=== PATIENT | female | born 2000 | race Caucasian/White ===

== ENCOUNTER → 2020-08-30 12:07 | Outpatient (CLI) | payer OTHER, SELFPAY ==
--- NOTE | ~2020-08-30 | XR_ITS ---
XR fl inj shoulder RT - MR/CT DATE: 08/30/2020 13:23 INDICATION: Right shoulder pain. Intra-articular contrast material injection for MR shoulder examinat ion TECHNIQUE: The purpose of the procedure, technique and potential complications were discussed with th e patient. The patient verbalized understanding and gave consent. Timeout procedure was performed. The skin of the anterior aspect of the right shoulder was prepared with sterile Betadine solution. Sterile drape was applied. 1% Xylocaine local anesthetic was administered to the skin and underlying subcutaneous tissues. A spi nal needle was introduced from an anterior approach into the glenohumeral joint space using fluorosco pic guidance. 12 cc of dilute MultiHance contrast material with Omnipaque 240 and 1% Xylocaine was in jected into the glenohumeral joint space. A single anteroposterior image out of the contrast material within the right shoulder joint was prese rved for the record. The needle was then withdrawn. The patient tolerated the procedure well, without complaint or apparent complication. IMPRESSION: Pre-MRI shoulder examination fluoroscopically guided right glenohumeral joint contrast ma terial injection Reviewed, dictated and finalized at [facility]. Reviewed, dictated and finalized at [facility]. IMPRESSION: Pre-MRI shoulder examination fluoroscopically guided right glenohum eral joint contrast material injection
--- NOTE | ~2020-08-30 | MR_ITS ---
EXAMINATION: MR shoulder RT w con DATE: 08/30/2020 14:06 INDICATION: Right shoulder pain TECHNIQUE: Magnetic resonance imaging (MRI) of the right shoulder was performed following intra-esther cular gadolinium contrast injection and without intravenous contrast. Details of the glenohumeral julia nt injection have been dictated separately. Sequences included axial T2-weighted FS FSE, axial T1-we ighted FS FSE, coronal oblique T1-weighted FS FSE, coronal oblique T2-weighted FSE, sagittal T2-weigh delroy FS FSE, sagittal T1-weighted FSE, and ABER (abduction external rotation) T1-weighted FS FSE. COMPARISON: Right shoulder MRI dated 02/16/2016 FINDINGS: Coracoacromial arch: The acromion undersurface is flat in morphology (type I). The coracoacromial ligament is normal. Acro mioclavicular joint is normal. Rotator cuff: The subscapularis, supraspinatus and teres minor tendons are normal. There is extension of intra-esther cular contrast across a longitudinal split tear extending between the posterior and middle thirds of the infraspinatus tendon. The contrast extends into a loculated likely large ganglion cyst along the superficial margin of the infraspinatus muscle belly and posterior head of the deltoid muscle belly. This likely occurs along a prior surgical tract with a few foci of susceptibility artifact in the ove rlying subcutaneous fat. The ganglion cyst measures 2.3 x 2.2 x 3.2 cm. Normal rotator cuff muscle bu lk and signal. Biceps tendon, glenoid labrum and glenohumeral cartilage: Long head of the biceps tendon is normal. There are suture anchor tracks along the posterior inferior glenoid consistent with repair of the previously noted labral tear. The labral repair appears to rem ain intact. There is a new very small bucket-handle tear stenting along the free edge of the 5:00-6:0 0 position of the anteroinferior glenoid labrum. Glenohumeral cartilage is normal. Bones and other: Bone alignment is normal. Normal marrow signal with no fracture, reactive edema or pathologic marrow replacing process. No abnormal fluid in the subacromial/subdeltoid bursa to suggest bursitis. IMPRESSION: 1. Intact repair of the posterior glenoid labrum with new very small bucket-handle tear along the out er free edge of the 5-6:00 position of the anteroinferior labrum. 2. Intra-articular contrast extension into a large ganglion cyst through a likely postsurgical longit udinal split tear of the posterior infraspinatus tendon. Reviewed, dictated and finalized at [facility]. IMPRESSION: 1. Intact repair of the posterior glenoid labrum with new very small bucket-kapoor dle tear along the outer free edge of the 5-6:00 position of the anteroinferior labrum. 2. Intra-articular contrast extension into a large ganglion cyst through a like ly postsurgical longitudinal split tear of the posterior infraspinatus tendon.
== END ==
PROVIDERS: PCP Physician Assistant Medical; Visit Provider Physician Assistant
DX: M25.511 Pain in right shoulder (principal)
CPT/HCPCS: 23350; 73222; 77002; A9577; Q9966

== ENCOUNTER 2022-12-18 11:07 | Outpatient (CLI) | payer OTHER, SELFPAY ==
[2022-12-18 11:21] LABS: Basophils Absolute Auto 0.1 K/mm3 (0.0-0.1); Basophils Percent Auto 0.6 % (0.2-1.2); Eosinophils Absolute Auto 0.3 K/mm3 (0-0.3); Eosinophils Percent Auto 3.2 % (0-4.4); Hematocrit 42.4 % (37.0-47.0); Immature Granulocyte Absolute 0.03 K/mm3 (0.00-0.031); Immature Granulocyte Percent A 0.3 % (0-0.5); Lymphocytes Absolute Auto 2.75 K/mm3 (0.9-3.2); Lymphocytes Percent Auto 28.1 % (18.3-44.2); Mean Corpuscular Volume 87.8 fl (80-100); Mean Platelet Volume 9.6 fl (7.4-10.4); Monocytes Absolute Auto 0.7 K/mm3 (0.1-0.6); Monocytes Percent Auto 7.4 % (2.6-8.5); Neutrophils Absolute Auto 5.9 K/mm3 (1.3-6.7); Neutrophils Percent Auto 60.4 % (45.5-73.1); Platelet Count Result 336 k/mm3 (150-375); Red Blood Count 4.83 M/mm3 (4.2-5.4); Red Cell Distribution Width 12.7 % (11.5-14.5); White Blood Count 9.8 K/mm3 (4.5-10.0)
== END 2022-12-18 11:08 | disposition home or self-care (01) ==
PROVIDERS: PCP Family Medicine; Visit Provider Physician Assistant Medical
DX: K62.5 Hemorrhage of anus and rectum (principal)
CPT/HCPCS: 36415; 85025

== ENCOUNTER 2023-02-08 01:50 | Day surgery (SDC) | payer OTHER, SELFPAY ==
[2023-01-22 14:56] VITALS: BMI 30.7
--- NOTE | 2023-02-06 09:06 | SUR.PREOP ---
Patient called regarding upcoming procedure. Message left on patient's voicemail regarding appointment times.
--- NOTE | 2023-02-07 09:52 | WPDANESEPPF ---
Anes - Initial Pre Proc Eval Procedure: Operation Date: 02/08/23 09:30 Proposed Procedures p Colonoscopy - Elías Chua MD Date/Time: 02/07/23 09:52 Surgeon: Elías Chua MD Pre Op Diagnosis: hemorrhage of anus and rectum Patient Data Age: 22 Gender: F Height: 1.68 m Weight: 86.5 kg Allergies Allergy/AdvReac Type Severity Reaction Status Date / Time cefuroxime [From Ceftin] Allergy Mild Rash Verified 02/08/23 08:32 Home Medications Medication Instructions Recorded Confirmed Type etonogestrel 0.12 mg-ethinyl 1 vag ring vaginal ONCE 05/23/21 01/22/23 History estradiol 0.015 mg/24 hr vaginal ring (NuvaRing) Patient hx anesthesia problems: none Family hx anesthesia problems: none Results Review: All pre-operative results and documents have been reviewed as part of the pre-operative evaluation. [facility] Past Medical History Medical History (Updated 02/07/23 @ 09:52 by Michele Arnett DO) Anxiety disorder, unspecified BMI 32.0-32.9,adult BMI 35.0-35.9,adult Elevated lipids Hyperlipidemia Insomnia Surgical History Surgical History History of shoulder surgery Family History Family History Other Acute myocardial infarction Depression Diabetes mellitus Heart disease Hypertension Social History Social History Smoking status: Never smoker Alcohol intake: current Drinks per week: 2 Substance use type: does not use Living arrangements: with family Spiritual care concerns: No Anes - Eval Final PreProcedure Day of Procedure 02/07/23 09:52 Patient weight: obese Heart: regular rate and rhythm Lungs: clear to auscultation Airway: Mallampati scale class II Neurological: alert and oriented Last oral intake: >/= 8 hours ASA classification: II Emergent: no Anesthetic plan: proceed Anesthesia type and monitoring: general GIVS and standard monitoring Results Review: All pre-operative results and documents have been reviewed as part of the pre-operative evaluation. Informed Consent: The patient's anesthetic plan and its attendant risks and benefits were discussed with the patient/family/POA. Questions were solicited and answers provided to the satisfaction of the patient/family/POA.
[2023-02-08 08:34] VITALS: BP 131/88; PULSE 116; RESP 18; TEMP 36.3; O2SAT 99; BMI 34.0
[2023-02-08] MEDS: LACTATED RINGERS 1,000 ML 150 ML IV CONT (08:41)
--- NOTE | 2023-02-08 09:03 | PM.HPGS ---
History of Present Illness History of Present Illness Consent: Risks, benefits, and alternatives have been discussed and questions answered. Patient agrees to proceed with procedure. Chief complaint: hemorrhage of anus and rectum Narrative: Jade Parikh is a 22 year old female here with intermittent rectal bleeding, never had colonoscopy Review of Systems Constitutional: Constitutional: Denies headache(s) and Denies weakness Eyes: Eyes: Denies blurry vision ENT: Reports Normal hearing present, Denies headache(s) and Denies neck pain Cardiovascular: Cardiovascular: Denies chest pain and Denies dyspnea Respiratory: Respiratory: Denies dyspnea Gastrointestinal: Gastrointestinal: Reports no additional gastrointestinal complaints Genitourinary: Genitourinary: Denies dysuria Musculoskeletal: Musculoskeletal: Denies neck pain Integumentary/Breasts: Skin/Breast: Denies dry skin Neurologic: Reports Normal hearing present, Denies headache(s) and Denies weakness Psychiatric: Psychiatric: Denies anxiety Endocrine: Endocrine: Denies change in body appearance Hematologic/Lymphatic: Hematologic/Lymphatic: Denies easy bleeding Allergic/Immunologic: Allergic/Immunologic: Denies urticaria PMFSH Past Medical History Medical History (Updated 02/07/23 @ 09:52 by Michele Arnett DO) Anxiety disorder, unspecified BMI 32.0-32.9,adult BMI 35.0-35.9,adult Elevated lipids Hyperlipidemia Insomnia Surgical History Surgical History History of shoulder surgery Family History Family History Other Acute myocardial infarction Depression Diabetes mellitus Heart disease Hypertension Social History Social History Smoking status: Never smoker Alcohol intake: current Drinks per week: 2 Substance use type: does not use Living arrangements: with family Spiritual care concerns: No Meds Home Medications and Allergies Home Medications Medication Instructions Recorded Confirmed Type etonogestrel 0.12 mg-ethinyl 1 vag ring vaginal ONCE 05/23/21 01/22/23 History estradiol 0.015 mg/24 hr vaginal ring (NuvaRing) Allergies Allergy/AdvReac Type Severity Reaction Status Date / Time cefuroxime [From Ceftin] Allergy Mild Rash Verified 02/08/23 08:32 Vital Signs Vital Signs - 24 hr 02/08/23 08:34 Temperature 97.4 F L Pulse Rate 116 H Respiratory Rate 18 Blood Pressure 131/88 Pulse Oximetry 99 Oxygen Delivery Room Air Exam Const: General: comfortable and no acute distress HENMT: Face/Nose/Sinus: Normal nares present Eyes: General: appearance normal, both eyes and all related structures Neck: Neck: no JVD Resp: Auscultation: clear to auscultation bilaterally Cardio: Rate: regular rate Rhythm: regular rhythm GI: Inspection: non-distended GI Palp: Yes Soft to palpation Skin: General skin exam: normal color Neuro: General: gait normal Speech: normal speech Extrem: General: normal to inspection Psych: Mental Status: mental status grossly normal Assessment and Plan Assessment and plan (1) BRBPR (bright red blood per rectum): Code(s): K62.5 - Hemorrhage of anus and rectum Status: Acute Assessment and Plan: probably perianal source colonoscopy
[2023-02-08 09:23] VITALS: BP 107/63; PULSE 71; RESP 22; O2SAT 99
[2023-02-08 09:33] VITALS: BP 103/67; PULSE 70; RESP 22; O2SAT 99
[2023-02-08 09:43] VITALS: BP 113/74; PULSE 64; RESP 33; O2SAT 99
== END 2023-02-08 09:47 | disposition home or self-care (01) ==
PROVIDERS: PCP Family Medicine; Visit Provider Internal Medicine Gastroenterology
PROC: 0DJD8ZZ Inspection of Lower Intestinal Tract, Via Natural or Artificial Opening Endoscopic (ICD-10-PCS; CPT 45378; principal; 2023-02-08 09:30)
DX: K64.8 Other hemorrhoids (principal); E66.9 Obesity, unspecified; Z68.34 Body mass index [BMI] 34.0-34.9, adult
CPT/HCPCS: 45378; J7120

== ENCOUNTER 2024-10-20 08:00 | Outpatient (CLI) | payer OTHER, SELFPAY ==
--- OUTSIDE RECORDS SUMMARY | 2024-10-20 08:05 | XMS_ITS | Clinical Summary ---
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 Disorder of shoulder 11/27/2013 Palpitations 02/15/2013 Acute pharyngitis 01/03/2012 Sore throat 01/03/2012 Resolved Problems Problem Noted Date Diagnosed Date Resolved Date Encounter for preventive health examination 01/03/2012 06/08/2024 Encounters Date Type Department Care Team Description 08/28/2024 9:00 PM CDT - 08/28/2024 11:56 PM CDT Emergency [facility] Emergency Room [address] [place] [id number] Liseth Bliss MD Abdominal Pain Discharge Disposition: Home or Self Care (Routine Discharge) 08/28/2024 Travel from Last 3 Months Immunizations Immunization Administration Dates Next Due DTaP (Daptacel) 10/08/2002, 0,02/03/1999,11/11 Dtap/Hib 12/20/1999 Flumist (Intranasal) 11/24/2013,11/21/2012,11/08 HPV4 (Gardasil) 08/22/2016,04/17/2016,02/15/2016 Hepatitis A Vaccine - 2 Dose 03/31/2010,09/16/19 10 Hepatitis B Pediatric 09/29/1999,03/25/1999,01/18 Hib Vaccine, Prp-T 03/25/1999,02/03/1999, 999 IPV/OPV 10/08/2002, 0,02/03/1999,11/11 Influenza (FluMist) 11/27/2010, 0,11/17/2008,12/23,12/19/2006,11/28/2005,11/22/2004 Influenza Adult (Generic) 11/20/2022,,11/24/2019,10/29,01/08/2016,11/25/2003,02/23/2003 MMR (MMRII) 10/08/2002,12/20/1999 Meningococcal (Menactra) 09/27/2015,11/18/2009 Meningococcal Vac A,C,Y,W-135 Sc 11/18/2009 Pneumococcal (Prevnar 13) 12/20/1999,09/29/1999 Polio IPV (Ipol) 10/08/2002, 0,02/03/1999,11/11 Td, Adsorbed, Preservative F ree, Adult Use, Lf Unspecified 10/16/2021 Tdap (Adacel) 11/18/2009 Varicella (Generic) 10/27/2007,09/29/1999 Social History Tobacco Use Types Packs/Day Years Used Date Smoking Tobacco: Never Passive Smoke Exposure: Past Smokeless Tobacco: Never Tobacco Cessation:Counseling Given: No Alcohol Use Standard Drinks/Week Comments Yes 0 (1 standard drink = 0.6 oz pur e alcohol) socailly Comments No Sex and Gender Information Value Date Recorded Sex Assigned at Female 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 Female 12:18 PM CDT Gender Identity Female 08/28/2024 9:12 PM CDT Sexual Orientation Straight 08/28/2024 9: 12 PM CDT Last Filed Vital Signs Vital Sign Reading Time Taken Comments Blood Pressure 127/71 08/28/2024 11:45 PM CDT Pulse 98 08/28/2024 11:45 PM CDT Temperature 37.1 C (98.7 F) 08/28/2024 11:45 PM CDT Respiratory Rate 18 08/28/2024 11:45 PM CDT Oxygen Saturation 98% 08/28/2024 11:45 PM CDT Inhaled Oxygen Concentration - - Weight 86.2 kg (190 lb) 08/28/2024 9:08 PM CDT Height 165.1 cm (5' 5) 08/28/2024 9:08 PM CDT Body Mass Index 31.62 08/28/2024 9:08 PM CDT Plan of Treatment Health Maintenance Due Date Last Done Comments Cervical Cancer Screening Pap Smear (Age 21 to 29) Every 3 Years 1998 Cervical Cancer Screening 1998 Annual Physical 2001 Hepatitis C 2016 COVID-19 Vaccine ( season) 2023 09/24/2020, 08/27/2020 PHQ-2 (Physician [place]) 02/19/2024 DTaP, Tdap and Td Vaccines (8 - Td or Tdap) 10/17/2031 10/16/2021, 11/18/2009, 10/08/2002, Additional history exists Hepatitis B Vaccines Completed 09/29/1999, 03/25/1999, 02/03/1999 Pneumococcal Vaccine: Pediatrics (0 to 5 Years) and At-Risk Patients (6 to 49 Years) Completed 12/20/1999, 09/29/1999 Meningococcal Vaccine Completed 09/27/2015 , 11/18/2009, 11/18/2009 HPV Vaccines Completed 08/22/2016, 03/22, 02/15/2016 Meningococcal B Vaccine Aged Out No l onger eligible based on patient's age to complete this topic RSV Immunizations Under 20 Months Aged Out No longer eligible based on patient's age to complete this topic Procedures Procedure Name Priority Date/Time Associated Diagnosis Comments CT ABD+PEL W CON STAT 08/28/2024 10:0 6 PM CDT LIPASE STAT 08/28/2024 9:24 PM CDT TEST URINE STAT 08/28/2024 9:24 PM CDT URINALYSIS, AUTO, COMPLETE STAT 08/28/2024 9:24 PM CDT COMPREHENSIVE METABOLIC PANEL STAT 08/28/2024 9:24 PM CDT CBC W/DIFF AUTOMATED STAT 08/28/2024 9:24 PM CDT from Last 3 Months Results * CT ABD+PEL W IV CON ONLY (08/28/2024 10:06 PM CDT) Anatomical Region Laterality Modality Abdomen Computed Tomogra phy 08/28/2024 10:5 3 PM CDT Impressions 08/28/2024 11:03 PM CDT IMPRESSION: No acute findings in the abdomen or pelvis to explain the patient's symptoms. The appendix is normal. Referred By: Interpreted By: Robert De La O MD, 08/28/2024 10:53 PM Narrative 08/28/2024 11:03 PM CDT [facility] [address] [address] [facility] [place] [address] EXAMINATION: CT ABDOMEN/PELVIS WITH CONTRAST INDICATION: Right lower quadrant pain with nausea and vomiting for 3 hours. COMPARISON: None available TECHNIQUE: Computed tomography of the abdomen, and pelvis was performed after administration of intravenous contrast, 75 mL of Isovue 370, without immediate complication, according to routine protocol. Radiation dose reduction technique(s) were used FINDINGS: Lower Chest: Lung bases are clear. No cardiomegaly or pericardial effusion. Upper abdominal organs: Focal hypoattenuation are the falciform ligament most commonly representing focal fatty infiltration or perfusional variation. The liver, spleen, pancreas, gallbladder, biliary tree, adrenal glands, and kidneys are within normal limits. Vascular: The abdominal aorta is normal in caliber. Lymph nodes: No retroperitoneal, mesenteric, or inguinal lymphadenopathy. Gastrointestinal: No bowel obstruction or bowel wall thickening. The appendix is normal. Miscellaneous: No free intraperitoneal air or ascites. Pelvis: No free pelvic fluid. The urinary bladder is normal. The uterus and adnexa are within normal limits. Probable ring contraceptive device in the vagina MSK: No acute osseous abnormality or destructive bone lesions. Procedure Note Robert De La O MD - 08/28/2024 [facility] [address] [place] [address] EXAMINATION: CT ABDOMEN/PELVIS WITH CONTRAST INDICATION: Right lower quadrant pain with nausea and vomiting for 3hours. COMPARISON: None available TECHNIQUE: Computed tomography of the abdomen, and pelvis was performedafter administration of intravenous contrast, 75 mL of Isovue 370, withoutimmediate complication, according to routine protocol. Radiation dosereduction technique(s) were used FINDINGS: Lower Chest: Lung bases are clear. No cardiomegaly or pericardialeffusion. Upper abdominal organs: Focal hypoattenuation are the falciform ligamentmost commonly representing focal fatty infiltration or perfusionalvariation. The liver, spleen, pancreas, gallbladder, biliary tree,adrenal glands, and kidneys are within normal limits. Vascular: The abdominal aorta is normal in caliber. Lymph nodes: No retroperitoneal, mesenteric, or inguinallymphadenopathy. Gastrointestinal: No bowel obstruction or bowel wall thickening. Theappendix is normal. Miscellaneous: No free intraperitoneal air or ascites. Pelvis: No free pelvic fluid. The urinary bladder is normal. The uterusand adnexa are within normal limits. Probable ring contraceptive devicein the vagina MSK: No acute osseous abnormality or destructive bone lesions. IMPRESSION: No acute findings in the abdomen or pelvis to explain the patient'ssymptoms. The appendix is normal. Referred By: Interpreted By: Robert De La O MD, 08/28/2024 10:53 PM [facility] Final Result * TEST URINE (08/28/2024 9:24 PM CDT) URINE HCG TEST NEGATIVE NEGATIVE 08/28/2024 9:42 PM CDT [facility] Comment: VERY DILUTE URINE SPECIMENS MAY NOT CONTAIN SENIOR ORACLE APPLICATIONS DEVELOPER LEVELS OF HCG. IF IS STILL SUSPECTED, A SERUM HCG TEST IS RECOMMENDED. URINE SPECIMEN FROM URETHRA / Unknown 08/28/2024 9:24 PM CDT Rehab Molly Bliss MD URINE ORDERABLES Final Result [facility] [address] [place] [address], [place] [phone] * (ABNORMAL) URINALYSIS, AUTO, COMPLETE (08/28/2024 9:24 PM CDT) COLOR (U) YELLOW 08/28/2024 9:43 PM CDT [facility] TRANSPARENCY CLEAR 08/28/2024 9:43 PM CDT [facility] SPECIFIC GRAVITY (U) <1.005 1.000 - 1.030 08/28/2024 9:43 PM CDT [facility] U PH 6.0 5.0 - 9.0 08/28/2024 9:43 PM CDT [facility] LEUKOCYTES (U) NEGATIVE NEGATIVE 08/28/2024 9:43 PM CDT [facility] NITRITES NEGATIVE NEGATIVE 08/28/2024 9:43 PM CDT [facility] PROTEIN RANDOM (U) NEGATIVE NEGATIVE 08/28/2024 9:43 PM CDT [facility] GLUCOSE (U) NEGATIVE NEGATIVE 08/28/2024 9:43 PM CDT [facility] KETONES MG/DL (U) NEGATIVE NEGATIVE 08/28/2024 9:43 PM CDT [facility] BILIRUBIN (U) NEGATIVE NEGATIVE 08/28/2024 9:43 PM CDT [facility] BLOOD (U) TRACE(A) NEGATIVE 08/28/2024 9:43 PM CDT [facility] WBC/HPF 0-5 0 - 5 /HPF 08/28/2024 9:43 PM CDT [facility] RBC/HPF 5-10 0 - 5 /HPF 08/28/2024 9:43 PM CDT [facility] EPI/HPF RARE /HPF 08/28/2024 9:43 PM CDT [facility] URINE SPECIMEN OBTAINED BY CLEAN CATCH PROCEDURE / Unknown 08/28/2024 9:24 PM CDT us Rehab M Izaiah ALLRED URINE ORDERABLES Final Result [facility] [address] [place] [address], [place] [phone] * (ABNORMAL) COMPREHENSIVE METABOLIC PANEL (08/28/2024 9:24 PM CDT) GLUCOSE 122(H) 70 - 99 MG/DL 08/28/2024 9:52 PM CDT [facility] BUN 10 7 - 18 MG/DL 08/28/2024 9:52 PM T [facility] CREATININE S/P/B 1.00 0.55 - 1.02 MG/DL 08/28/2024 9:52 PM CDT [facility] SODIUM S/P/B 139 136 - 145 MMOL/L 08/28/2024 9:52 PM T [facility] POTASSIUM S/P/B 3.5 3.5 - 5.1 MMOL/L 08/28/2024 9:52 PM CDT [facility] CHLORIDE S/P/B 104 100 - 108 MMOL/L 08/28/2024 9:52 PM CDT [facility] CO2 27.5 21 - 32 MMOL/L 08/28/2024 9:52 PM CDT [facility] CALCIUM S/P/B 9.1 8.5 - 10.1 MG/DL 08/28/2024 9:52 PM [facility] BILIRUBIN TOTAL S/P/B 0.4 0.2 - 1.2 MG/DL 08/28/2024 9:52 PM [facility] TOTAL PROTEIN S/P/B 7.8 6.4 - 8.2 G/DL 08/28/2024 9:52 PM [facility] ALBUMIN S/P/B 3.7 3.4 - 5.0 G/DL 08/28/2024 9:52 PM [facility] AST 16 15 - 37 U/L 08/28/2024 9:52 PM [facility] ALT 28 14 - 55 U/L 08/28/2024 9:52 PM [facility] ALKALINE PHOSPHATASE S/P/B 75 50 - 136 U/L 08/28/2024 9:52 PM [facility] ANION GAP 7.5 5 - 15 MMOL/L 08/28/2024 9:52 PM [facility] BUN CREATININE RATIO 10.0 6 - 26 08/28/2024 9:52 PM [facility] A/G RATIO 0.9(L) 1.0 - 2.0 RATIO 08/28/2024 9:52 PM [facility] GFR ESTIMATE 80(L) >90 ML/MIN/1.7 3 M2 08/28/2024 9:52 PM [facility] Comment: NOTE: eGFR is not calculated for patients <18 years of age. This is an estimated GFR calculation using the new CKD EPI creatinine equation without race and so does not require a correction factor for race. This estimated GFR should not be used for calculating drug doses. 08/28/2024 9:2 4 PM CDT us Rehab M Izaiah ALLRED LABORATORY Final Result [facility] [address] [place] [address], [place] [phone] * (ABNORMAL) CBC W/DIFF AUTOMATED (08/28/2024 9:24 PM CDT) WBC 15.80(H) 4.4 - 11.0 x10'3/uL 08/28/2024 9:33 PM CDT [facility] RBC 4.70 4.50 - 5.10 x10'6/uL 08/28/2024 9:33 PM CDT [facility] HGB 14.6 12.3 - 15.3 G/DL 08/28/2024 9:33 PM CDT [facility] HCT 41.4 35.9 - 44.6 % 08/28/2024 9:33 PM CDT [facility] MCV 88.1 80.0 - 96.0 FL 08/28/2024 9:33 PM CDT [facility] MCH 31.1(H) 25.3 - 30.9 PG 08/28/2024 9:33 PM CDT [facility] MCHC 35.3(H) 31.0 - 34.1 G/DL 08/28/2024 9:33 PM CDT [facility] RDW 13.0 12.4 - 15.1 % 08/28/2024 9:33 PM CDT [facility] PLT 299 151 - 353 x10'3/uL 08/28/2024 9:33 PM CDT [facility] MPV 9.9 9.6 - 12.0 FL 08/28/2024 9:33 PM CDT [facility] RBC MORPHOLOGY NORMAL 08/28/2024 9:33 PM CDT [facility] PLT MORPH. NORMAL 08/28/2024 9:33 PM CDT [facility] WBC MORPHOLOGY NORMAL 08/28/2024 9:33 PM CDT [facility] LYMPHOCYTES % 20.2 15.8 - 45.0 % 08/28/2024 9:33 PM CDT [facility] NEUTROPHILS % 70.2 42.1 - 71.9 % 08/28/2024 9:33 PM CDT [facility] MONOCYTES % 7.0 5.7 - 12.5 % 08/28/2024 9:33 PM CDT [facility] EOSINOPHILS 1.9 0.0 - 5.6 % 08/28/2024 9:33 PM CDT [facility] BASOPHILS 0.4 0.0 - 1.3 % 08/28/2024 9:33 PM CDT [facility] ABS. NEUTROPHILS 11.10(H) 1.40 - 6.00 x10'3/uL 08/28/2024 9:33 PM CDT [facility] IMMATURE GRANS % 0.3 0.0 - 0.5 % 08/28/2024 9:33 PM CDT [facility] ABS. LYMPHOCYTES 3.19 0.80 - 4.70 x10'3/uL 08/28/2024 9:33 PM CDT [facility] 08/28/2024 9:24 PM CDT us Rehab Molly Bliss MD LABORATORY Final Result [facility] [address] [place] [address], * LIPASE (08/28/2024 9:24 PM CDT) LIPASE 40 16 - 77 UNITS/L 08/28/2024 9:52 PM CDT [facility] 08/28/2024 9:24 PM CDT us Rehab M Izaiah ALLRED LABORATORY Final Result [facility] [address] [place] [address], from Last 3 Months Insurance [employer] Care Teams Vice President Pharmacy Relationship Specialty Start Date End Date Torin Thacker MD [address] [address] PCP - General 07/22/23
--- OUTSIDE RECORDS SUMMARY | 2024-10-20 08:05 | XMS_ITS | Clinical Summary ---
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 Disorder of shoulder 11/27/2013 Palpitations 02/15/2013 Family History Medical History Relation Name Comments Hyperlipidemia Father Family histor y of hyperlipidemia - (Added by TW Conv) Relation Name Status Comments Father Social History Tobacco Use Types Packs/Day Years Used Date Smoking Tobacco: Never Personal Safety Answer Date Recorded Getting School Help Needed Not on file 03/27 Comments Unknown Sex and Gender Information Value Date Recorded Sex Assigned at Not on file Legal Sex Female 12:40 AM SEEING EYE DOG TRAINER Gender Identity Female 03/27/2023 8:51 AM SEEING EYE DOG TRAINER Sexual Orientation Not on file Obstetrics History Last Filed Vital Signs Vital Sign Reading Time Taken Comments Blood Pressure 114/70 11/30/2013 9:58 AM CDT Pulse 100 02/16/2013 9:12 AM SEEING EYE DOG TRAINER Temperature - - Respiratory Rate - - Oxygen Saturation - - Inhaled Oxygen Concentration - - Weight 77.1 kg (170 lb) 10/05/2020 9:45 AM CDT Height 167.6 cm (5' 6) 10/05/2020 9:45 AM CDT Body Mass Index 27.44 10/05/2020 9:45 AM CDT Plan of Treatment Not on file Insurance [employer] Care Teams Line Up Examiner Relationship Specialty Start Date End Date No, Physician PCP - General 10/04/20
--- OUTSIDE RECORDS SUMMARY | 2024-10-20 08:05 | XMS_ITS | Clinical Summary ---
Author Organization [facility] Address [address] [place] [address] Phone Care Team Providers Care Steam Box Hand Name Role Phone Provider, None Primary Care Provider Unavailabl e Allergies Active Allergy Reactions Criticality Noted Date Comments Cefuroxime Unknown 11/11/2020 Cephalosporins Unknown 01/03/2012 Medications escitalopram (LEXAPRO) 10 MG Tablet 10/04/2020 Active Etonogestrel-Et hinyl Estradiol 0.12-0.015 MG/24HR RING by Vaginal route. Active Social History Tobacco Use Types Packs/Day Years Used Date Smoking Tobacco: Never Smokeless Tobacco: Never Alcohol Use Standard Drinks/Week Comments Not Currently 0 (1 standard drink = 0.6 oz pur e alcohol) Sexually Active Control Partners Comments Not Currently Comments Unknown Sex and Gender Information Value Date Recorded Sex Assigned at Not on file Legal Sex Female 6:20 PM CDT Gender Identity Female 03/27/2023 8:56 AM PATROL MAN Sexual Orientation Not on file Last Filed Vital Signs Vital Sign Reading Time Taken Comments Blood Pressure 120/82 11/11/2020 6:27 PM CDT Pulse 125 11/11/2020 6:27 PM CDT Temperature 38.1 C (100.6 F) 11/11/2020 6:27 PM CDT Respiratory Rate 15 11/11/2020 6:27 PM CDT Oxygen Saturation 98% 11/11/2020 6:27 PM CDT Inhaled Oxygen Concentration - - Weight - - Height - - Body Mass Index - - Plan of Treatment Health Maintenance Due Date Last Done Comments Hepatitis C Virus (HCV) Screening 1998 SARS-COV-2 Immunization (2023- season) 2023 09/24/2020, 08/27/2020 Influenza Immunization (#1) 10/19/202407/2019, 10/29/2016, 01/08/2016, Additional history exists Respiratory Syncytial Virus (RSV) Immunization (Adult) (1 - 1-dose 75+ series) 2073 Hepatitis B Immunization Completed 000, 03/25/1999, 02/03/1999 Pneumococcal Immunization Combined Completed 12/20/1999, 09/29/1999 DTaP/Tdap/Td Immunization Discontinued 2009, 10/08/2002, 12/20/1999, Additional history exists TdaP Immunization Completed 11/18/2009 Meningococcal Immunization (ACWY) Completed 09/27/2015, 11/18/2009 Human Papillomavirus (HPV) Immunization Completed 08/22/2016, 04/17/2016, 02/15/2016 Rotavirus Immunization Aged Out No lo nger eligible based on patient's age to complete this topic Insurance [employer] Care Teams Steam Box Hand Relationship Specialty Start Date End Date Provider, None [place] PCP - General 11/11/20
[2024-10-20 09:29] LABS: Hematocrit 43.1 % (37.0-47.0); Hemoglobin 14.5 g/dL (12.0-15.0); Immature Granulocyte Percent A 0.4 % (0-0.5); Lymphocytes Absolute Auto 2.07 K/mm3 (0.9-3.2); Mean Corpuscular HGB Conc 33.6 g/dl (32-36); Mean Corpuscular Hemoglobin 30.1 pg (26-34); Mean Corpuscular Volume 89.6 fl (80-100); Nucleated Red Blood Cells Absolute Auto 0.000 K/mm3 (0.0-0.012); Nucleated Red Blood Cells Perc 0.0 % (0.0-0.2); Platelet Count Result 303 k/mm3 (150-375); Red Blood Count 4.81 M/mm3 (4.2-5.4); White Blood Count 9.0 K/mm3 (4.5-10.0)
[2024-10-20 09:54] LABS: Alanine Aminotransferase 17 U/L (6-35); Albumin Level 4.4 g/dL (3.5-5.1); Alkaline Phosphatase 77 U/L (38-126); Anion Gap 9 mmol/L (4-12); Aspartate Amino Transferase 26 U/L (14-36); Bilirubin,Total 0.5 mg/dL (0.2-1.3); Blood Urea Nitrogen 16 mg/dL (7-17); Calcium 9.7 mg/dL (8.4-10.2); Carbon Dioxide 24 mmol/L (22-30); Chloride 105 mmol/L (98-107); Cholesterol 151 mg/dL (0-200); Estimated Glomerular Filt Rate > 60; Glucose 92 mg/dL (65-110); HDL Direct 43 mg/dL; Potassium 4.3 mmol/L (3.4-5.0); Sodium 138 mmol/L (137-145); Total Protein 8.1 g/dL (6.3-8.2); Triglycerides 133 mg/dL (<150)
[2024-10-20 11:32] LABS: Thyroid Stimulating Hormone 0.525 uIU/mL (0.465-4.680)
[2024-10-20 12:07] LABS: Vitamin B12 206.0 pg/mL (239-931)
== END 2024-10-20 08:01 | disposition home or self-care (01) ==
LOC: ANHLAB 08:02
PROVIDERS: PCP Family Medicine; Visit Provider Nurse Practitioner Family
DX: F51.01 Primary insomnia (principal); Z13.1 Encounter for screening for diabetes mellitus; Z13.29 Encounter for screening for other suspected endocrine disorder; E55.9 Vitamin D deficiency, unspecified; Z13.220 Encounter for screening for lipoid disorders
CPT/HCPCS: 36415; 80053; 80061; 82306; 82607; 82746; 84443; 85025